=== PATIENT | male | born 1975 | race Caucasian/White ===

== ENCOUNTER 2017-09-17 12:21 | Emergency (ER) | payer SELFPAY ==
[2017-09-17] MEDS ORDERED: HYDROMORPHONE HCL INJ/PF 2 MG/ML AMPULE IM ONE (13:13)
[2017-09-17] MEDS ORDERED: KETOROLAC TROMETHAMINE 60 MG/2 ML SDV IM ONE (13:14)
--- NOTE | 2017-09-17 14:48 | RADIOLOGY REPORT (SQ) ---
EXAM DESCRIPTION: HIP RIGHT AP/LATERAL COMPLETED DATE/TIME: 09/17/2017 2:19 pm REASON FOR STUDY: fall/pain COMPARISON: None. NUMBER OF VIEWS: Two views. TECHNIQUE: AP pelvis and additional frog-leg view of the right hip. LIMITATIONS: None. FINDINGS: MINERALIZATION: Normal. RIGHT HIP: Severe degenerative changes and deformity of the right hip which is chronic. Cystic tear lesion of the acetabulum and femoral head with large osteophytes. No acute fracture. LEFT HIP: Less prominent degenerative changes. PUBIS AND ISCHIUM: No fracture. PELVIS: No fracture. SACRUM: No fracture or dislocation. No worrisome bone lesions. LOWER LUMBAR SPINE: No fracture or dislocation. No worrisome bone lesions. No significant disc disea se. SOFT TISSUES: No findings. OTHER: No other significant finding. IMPRESSION: Severe degenerative changes of the right hip with mild degenerative changes of the left hip. No fractures. TECHNICAL DOCUMENTATION: JOB ID: [id number] [employer]- All Rights Reserved
--- NOTE | 2017-09-17 14:50 | RADIOLOGY REPORT (SQ) ---
EXAM DESCRIPTION: L SPINE 2 VIEWS COMPLETED DATE/TIME: 09/17/2017 2:19 pm REASON FOR STUDY: fall/pain COMPARISON: None. NUMBER OF VIEWS: Two views. TECHNIQUE: AP and lateral radiographic images acquired of the lumbar spine. LIMITATIONS: None. FINDINGS: MINERALIZATION: Normal. SEGMENTATION: Transitional L5. The ALIGNMENT: Normal. VERTEBRAE: Maintained height. No fracture or worrisome bone lesion. DISCS: Multilevel degenerative changes most prominent L5-S1. POSTERIOR ELEMENTS: Pedicles and facets are intact. No pars defect or posterior arch defects. HARDWARE: None in the spine. PARASPINAL SOFT TISSUES: Normal. PELVIS: Intact as visualized. No fractures or worrisome bone lesions. SI joints intact. OTHER: No other significant finding. IMPRESSION: Degenerative changes. No acute fracture. TECHNICAL DOCUMENTATION: JOB ID: [id number] [employer]- All Rights Reserved
--- NOTE | 2017-09-17 15:12 | ER Document Report ---
ED General - General Chief Complaint: Hip Pain Stated Complaint: HIP AND BACK PAIN Time Seen by Provider: 09/17/17 13:12 Mode of Arrival: Ambulatory Information source: Patient Notes: Patient has a history of chronic back pain due to some previous back surgeries and complications. He states today he fell while going down some steps and now has severe low back pain. He states he has had "footdrop" for several years from the complications of the previous surgery. He states every once in a while this will cause him to fall as it did today. He states denies having trouble with any type of movement causing severe pain. Pain is better with rest. It is sharp and radiates down his right leg as well as up his back. He denies any loss of consciousness or other significant injuries. He states the pain is mainly centered in the right low back radiates across both sides of his back and is also on the right hip and radiates on the right leg. TRAVEL OUTSIDE OF THE [place] IN LAST 30 DAYS: No - Related Data Allergies/Adverse Reactions: tramadol Allergy (Verified 09/17/17 12:41) Past Medical History - General Information source: Patient - Social History Smoking Status: Never Smoker Chew tobacco use (# tins/day): Yes Frequency of alcohol use: None Drug Abuse: None Family History: Reviewed & Not Pertinent Patient has suicidal ideation: No Patient has homicidal ideation: No Renal/ Medical History: Denies: Hx Peritoneal Dialysis Skin Medical History: Reports Hx MRSA Past Surgical History: Reports: Hx Orthopedic Surgery - Laminectomy Review of Systems - Review of Systems Constitutional: denies: Chills, Fever EENT: denies: Eye pain, Eye discharge Cardiovascular: denies: Chest pain, Palpitations Respiratory: denies: Cough, Short of breath -: Yes All other systems reviewed and negative Physical Exam - Vital signs Vitals: Temp Pulse Resp BP Pulse Ox 98.2 F 77 12 133/77 H 100 09/17/17 12:48 09/17/17 12:48 09/17/17 12:48 09/17/17 12:48 09/17/17 12:48 Interpretation: Normal - General General appearance: Appears well, Alert - HEENT Head: Normocephalic, Atraumatic Eyes: Normal Pupils: PERRL - Respiratory Respiratory status: No respiratory distress Chest status: Nontender Breath sounds: Normal Chest palpation: Normal - Cardiovascular Rhythm: Regular Heart sounds: Normal auscultation Murmur: No - Abdominal Inspection: Normal Distension: No distension Bowel sounds: Normal Tenderness: Nontender Organomegaly: No organomegaly - Back Back: Normal, Nontender - Extremities General upper extremity: Normal inspection, Nontender, Normal color, Normal ROM , Normal temperature General lower extremity: Normal inspection, Nontender, Normal color, Normal ROM , Normal temperature, Normal weight bearing. No: Darius's sign - Neurological Neuro grossly intact: Yes Cognition: Normal Orientation: AAOx4 Nury Coma Scale Eye Opening: Spontaneous Nury Coma Scale Verbal: Oriented Nury Coma Scale Motor: Obeys Commands Nury Coma Scale Total: 15 Speech: Normal Motor strength normal: LUE, RUE, LLE, RLE Sensory: Normal - Psychological Associated symptoms: Normal affect, Normal mood - Skin Skin Temperature: Warm Skin Moisture: Dry Skin Color: Normal Course - Vital Signs Vital signs: Temp Pulse Resp BP Pulse Ox 98.2 F 77 12 133/77 H 100 09/17/17 12:48 09/17/17 12:48 09/17/17 12:48 09/17/17 12:48 09/17/17 12:48 - Diagnostic Test Radiology reviewed: Image reviewed, Reports reviewed - No evidence of fracture or dislocation on x-rays of the lumbar spine or right hip. Discharge - Discharge Clinical Impression: Fall Qualifiers: Encounter type: initial encounter Qualified Code(s): W19.XXXA - Unspecified fall, initial encounter Lumbar strain Qualifiers: Encounter type: initial encounter Qualified Code(s): S39.012A - Strain of muscle, fascia and tendon of lower back, initial encounter Contusion of right hip Qualifiers: Encounter type: initial encounter Qualified Code(s): S70.01XA - Contusion of right hip, initial encounter Condition: Stable Disposition: HOME, SELF-CARE Instructions: Contusion ([facility]), Low Back Pain ([facility]) Prescriptions: Oxycodone HCl/Acetaminophen [Percocet 5-325 mg Tablet] 1 - 2 tab PO Q4H PRN #15 tablet PRN Reason: Referrals: ROOSEVELT CARRASQUILLO MD [ACTIVE STAFF] - Follow up in 1 week
[2017-09-17 15:23] VITALS: BP 129/82
== END 2017-09-17 15:33 | disposition home or self-care (01) ==
LOC: ER 12:21
DX: S39.012A Strain of muscle, fascia and tendon of lower back, initial encounter (principal); S70.01XA Contusion of right hip, initial encounter; M54.9 Dorsalgia, unspecified; G89.29 Other chronic pain; M25.551 Pain in right hip; W19.XXXA Unspecified fall, initial encounter
CPT/HCPCS: 99283; 96372; 73502; 72100; J1885; J1170

== ENCOUNTER 2017-10-31 12:54 | Emergency (ER) | payer OTHER ==
[2017-10-31] MEDS ORDERED: HYDROCODONE/ACETAMINOPHEN 5-325 MG TABLET PO ONE (14:25)
--- NOTE | 2017-10-31 15:28 | RADIOLOGY REPORT (SQ) ---
EXAM DESCRIPTION: HIP RIGHT AP/LATERAL COMPLETED DATE/TIME: 10/31/2017 3:12 pm REASON FOR STUDY: Fall with trauma and pain COMPARISON: None. NUMBER OF VIEWS: Two views. TECHNIQUE: AP pelvis and additional frog-leg view of the right hip. LIMITATIONS: None. FINDINGS: MINERALIZATION: Normal. RIGHT HIP: There is no definite fracture. There is no dislocation. There is somewhat of a sclerotic line the crosses the femoral neck felt to be related to degenerative disease. Degenerative joint ch anges are present with narrowing the joint space, subchondral cysts in the acetabulum, and marginal o steophytes on the femoral head. LEFT HIP: Milder degenerative joint changes are present. PUBIS AND ISCHIUM: No fracture. PELVIS: No fracture. SACRUM: No fracture or dislocation. No worrisome bone lesions. LOWER LUMBAR SPINE: No fracture or dislocation. No worrisome bone lesions. No significant disc disea se. SOFT TISSUES: No findings. OTHER: No other significant finding. IMPRESSION: Degenerative changes in the right hip as described. There is a sclerotic line the cross es the femoral neck. A slightly impacted fracture cannot entirely be excluded. TECHNICAL DOCUMENTATION: JOB ID: [id number] [employer]- All Rights Reserved Reading location - IP/workstation name: [email or web address]
[2017-10-31] MEDS ORDERED: MORPHINE SULFATE 10 MG/ML INJ IM ONE (15:45)
--- NOTE | 2017-10-31 16:10 | ER Document Report ---
ED General - General Chief Complaint: Low Back Pain Stated Complaint: FALL/RIGHT HIP, LEG AND BACK PAIN Time Seen by Provider: 10/31/17 14:17 Mode of Arrival: Wheelchair Information source: Patient TRAVEL OUTSIDE OF THE [place] IN LAST 30 DAYS: No - HPI Notes: 42-year-old male with a history of chronic right hip and back pain who presents with fall and right hip and back injury. Patient states she was getting out of the shower and slipped due to his chronic foot drop in bearing weight on the affected extremity. He fell and struck his right hip, complains now of right paralumbar pain and right hip pain. Sharp, achy, severe with motion. Nonradiating. Chronic right lower extremity diminished sensation below the knee but nothing new. No head injury, no loss of consciousness, no use of anticoagulants. No other modifying factors, no other associated symptoms, no other provocative or palliative factors. - Related Data Allergies/Adverse Reactions: tramadol Allergy (Verified 10/31/17 12:57) Past Medical History - General Information source: Patient - Social History Smoking Status: Unknown if Ever Smoked Frequency of alcohol use: Occasional Drug Abuse: None Family History: Reviewed & Not Pertinent Patient has suicidal ideation: No Patient has homicidal ideation: No Skin Medical History: Reports Hx MRSA Past Surgical History: Reports: Hx Orthopedic Surgery - Laminectomy Review of Systems - Review of Systems EENT: No symptoms reported Cardiovascular: No symptoms reported Respiratory: No symptoms reported Gastrointestinal: No symptoms reported Musculoskeletal: See HPI Physical Exam - Vital signs Vitals: Temp Pulse Resp BP Pulse Ox 97.7 F 91 14 114/69 100 10/31/17 12:59 10/31/17 12:59 10/31/17 12:59 10/31/17 12:59 10/31/17 12:59 - General In distress: Moderate - HEENT Head: Normocephalic, Atraumatic Eyes: Normal Pupils: PERRL - Respiratory Respiratory status: No respiratory distress Chest status: Nontender Breath sounds: Normal Chest palpation: Normal - Cardiovascular Rhythm: Regular Heart sounds: Normal auscultation Murmur: No - Abdominal Inspection: Normal Distension: No distension Bowel sounds: Normal Tenderness: Nontender Organomegaly: No organomegaly - Back Back: Scars Notes: Moderate right paralumbar tenderness and spasm, no point vertebral tenderness. No step-off or deformity. - Extremities Notes: Diffuse right anterolateral hip tenderness, no deformity. Range of motion limited somewhat by pain. Neurovascular examination. - Neurological Notes: Chronic diminished sensation below the knee, to light touch and pain, compared to the unaffected extremity. Course - Vital Signs Vital signs: Temp Pulse Resp BP Pulse Ox 97.7 F 91 14 114/69 100 10/31/17 12:59 10/31/17 12:59 10/31/17 12:59 10/31/17 12:59 10/31/17 12:59 - Transfer of Care Care transferred to following provider: Dr. French Notes: 10/31/17 16:08 42-year-old male status post fall with the aforementioned symptoms. With regard to his back, no point vertebral tenderness and no mechanism that would suggest need for x-ray or lumbar fracture. Suspect lumbar strain. However, he has had direct trauma to his right hip, in light of this we will proceed with plain films and reevaluate. Plain films are evaluated, read by the radiologist as showing a sclerotic line that could be consistent with fracture although this is felt to be less likely. Personal discussion with radiologist resulted in recommendation of CT of the hip to exclude fracture. Initially received oral analgesics, he is receiving intramuscular injection of morphine. He signed out to Dr. french with the plan for discharge and outpatient follow-up if CT is negative, treatment with Flexeril and naproxen, if CT shows a fracture, definitive operative management will likely be needed. Discharge - Discharge Clinical Impression: Lumbar strain Qualifiers: Encounter type: initial encounter Qualified Code(s): S39.012A - Strain of muscle, fascia and tendon of lower back, initial encounter Contusion of right hip Qualifiers: Encounter type: initial encounter Qualified Code(s): S70.01XA - Contusion of right hip, initial encounter Condition: Good Disposition: HOME, SELF-CARE Instructions: Muscle Strain ([facility]), Low Back Pain ([facility]) Prescriptions: Cyclobenzaprine HCl [Flexeril 10 mg Tablet] 10 mg PO TIDP PRN #15 tab PRN Reason: Naproxen 500 mg PO Q12 #14 tablet
--- NOTE | 2017-10-31 16:13 | RADIOLOGY REPORT (SQ) ---
EXAM DESCRIPTION: CT RT LOWER EXTREMITY WITHOUT COMPLETED DATE/TIME: 10/31/2017 3:57 pm REASON FOR STUDY: CT Hip, ? fx on plain film COMPARISON: Hip radiographs 10/31/2017 TECHNIQUE: CT scan of the right hip performed without intravenous or oral contrast. Images reviewed with soft tissue and bone windows. Reconstructed coronal and sagittal MPR images reviewed. All misty ges stored on PACS. All CT scanners at this facility use dose modulation, iterative reconstruction, and/or weight based d osing when appropriate to reduce radiation dose to as low as reasonably achievable (ALARA). [facility]: Dose Right [facility]: CareDose [facility]: Dose Right [facility]: Teradose 4D [facility]: Smart MonkeyFind RADIATION DOSE: CT Rad equipment meets quality standard of care and radiation dose reduction techniq ues were employed. CTDIvol: 4.1 mGy. DLP: 135 mGy-cm. mGy. LIMITATIONS: None. FINDINGS: PELVIC BONES: No acute fracture. No worrisome bone lesions. VISUALIZED SPINE: Not included PE RIGHT HIP: No acute fracture or dislocation. Degenerative joint changes are present. There are subc hondral cysts in the acetabulum. Marginal osteophytes are seen on the femoral head. The joint space is narrowed. LEFT HIP: Not included. PELVIC SOFT TISSUES: No significant findings. EXTRAPELVIC SOFT TISSUES: No significant findings. OTHER: No other significant finding. IMPRESSION: Degenerative joint disease with no fracture or dislocation. TECHNICAL DOCUMENTATION: JOB ID: [id number] Quality ID # [id number]: Final reports with documentation of one or more dose reduction techniques (e.g., Au tomated exposure control, adjustment of the mA and/or kV according to patient size, use of iterative reconstruction technique) 2010 [employer]- All Rights Reserved Reading location - IP/workstation name: [email or web address]
[2017-10-31 17:10] VITALS: BP 117/67
== END 2017-10-31 17:10 | disposition home or self-care (01) ==
LOC: ER 12:54
DX: S39.012A Strain of muscle, fascia and tendon of lower back, initial encounter (principal); S70.01XA Contusion of right hip, initial encounter; M54.5 Low back pain; M25.551 Pain in right hip; M79.604 Pain in right leg; M54.9 Dorsalgia, unspecified; M21.379 Foot drop, unspecified foot; W18.2XXA Fall in (into) shower or empty bathtub, initial encounter
CPT/HCPCS: 99284; 96372; 73502; 73700; J2270